=== PATIENT | male | born 1960 | race Caucasian/White ===

== ENCOUNTER 2019-04-24 15:51 | Emergency (ER) | payer OTHER ==
[~2019-04-24] VITALS: Ht 162.6 cm; Wt 81.6 kg
[2019-04-24 15:54] VITALS: BP 214/127
[2019-04-24] MEDS: HYDROcodone/APAP 5/325 MG 1 TAB TAB PO ONE (16:17)
[2019-04-24] MEDS: cloNIDine 0.1 MG TAB PO ONE (16:17)
[2019-04-24] MEDS ORDERED: hydrALAZINE 20 MG/ML VIAL ONE (16:53)
[2019-04-24] MEDS: hydrALAZINE 20 MG/ML VIAL IVP ONE ×2 (17:16→17:46)
[2019-04-24 17:46] VITALS: BP 195/113
== END 2019-04-24 17:48 | disposition home or self-care (01) ==
LOC: MED 15:51
DX: M17.12 Unilateral primary osteoarthritis, left knee (principal); M79.651 Pain in right thigh; I10 Essential (primary) hypertension
CPT/HCPCS: 73562; 96374; 96375; 99283; J0360; Q0092